=== PATIENT | male | born 1985 | race Caucasian/White ===

== ENCOUNTER 2025-04-27 07:44 | Day surgery (SDC) | payer OTHER, SELFPAY ==
[2025-04-27] VITALS (9 sets, daily range): BP systolic 94–126; BP diastolic 64–90; PULSE 98–113; RESP 12–20; TEMP 36.5–37.4; O2SAT 95–100; BMI 21.1
--- NOTE | 2025-04-27 07:58 | XR_ITS ---
Examination: CT abdomen with intravenous contrast CT pelvis with intravenous contrast 2-D coronal reconstructions 2-D sagittal reconstructions Date and time of exam:April 27, 2025 0915 hours INDICATIONS: Right lower abdominal pain with fever beginning today. CTDI: vol (mGy) 5.32 DLP: (mGycm) 304 Technique: Multiple axial sections of the abdomen and pelvis have been obtained. 64 slice high-resolution scanner used. 3 mm axial sections have been obtained, post intravenous injection 60 cc [id number] 2-D sagittal, coronal reconstructions obtained. Low dose protocols were performed. One or more of the following dose reduction techniques were used; automated exposure control, adjustment of the mA and/or KV according to patient size, use of iterative reconstruction technique. Findings: No focal liver or splenic lesions No gallstones No pancreatic or adrenal mass No renal or ureteral calculi, no hydronephrosis Aorta normal size Appendix is enlarged and fluid-filled with appendicolith, axial images 150 11/04/1969 with mild periappendiceal inflammatory change No pelvic abscess Bladder intact IMPRESSION: Findings most consistent with early acute appendicitis, clinical correlation is advised
--- NOTE | 2025-04-27 07:59 | PD.EDABDPN ---
ED Abdominal Pain RME/HPI General Chief Complaint: Abdominal Pain Stated complaint: Right lower abdominal pain, vomiting Time seen by provider: 04/27/25 07:48 Arrival date/time: 04/27/25 07:44 40-year-old male with no known medical history presents to the emergency room with a chief complaint of right lower quadrant abdominal pain, vomiting x 2 days Source: patient Mode of arrival: ambulatory Limitations: no limitations Related Data Allergies Allergy/AdvReac Type Severity Reaction Status Date / Time ampicillin Allergy Mild pt. is Verified 04/27/25 07:47 allergic. amoxicillin Allergy Unknown Verified 04/27/25 07:47 Review of Systems Review of Systems Systems Reviewed: All systems reviewed, normal except as documented Constitutional Constitutional: Reports system reviewed and no additional complaints, except as documented, Denies fatigue, Denies fever(s), Denies headache(s) and Denies weakness Eyes Eyes: Reports system reviewed and no additional complaints, except as documented, Denies blurry vision and Denies change in vision ENT Ears, Nose, Mouth, and Throat: Reports system reviewed and no additional complaints, except as documented, Denies otalgia, Denies headache(s), Denies nasal congestion, Denies throat swelling and Denies vertigo Cardiovascular Cardiovascular: Reports system reviewed and no additional complaints, except as documented, Denies chest pain, Denies dyspnea and Denies dyspnea on exertion Respiratory Respiratory: Reports system reviewed and no additional complaints, except as documented, Denies chest congestion, Denies cough, Denies dyspnea, Denies dyspnea on exertion and Denies wheezing Gastrointestinal Gastrointestinal: Reports system reviewed and no additional complaints, except as documented, Reports abdominal pain, Reports cramping, Denies nausea and Reports vomiting Genitourinary Genitourinary: Reports system reviewed and no additional complaints, except as documented, Denies dysuria and Denies hematuria Musculoskeletal Musculoskeletal: Reports system reviewed and no additional complaints, except as documented and Denies back pain Integumentary/Breasts Skin/Breast: Reports system reviewed and no additional complaints, except as documented and Denies wounds Neurologic Neurologic: Reports system reviewed and no additional complaints, except as documented, Denies confusion, Denies headache(s), Denies lack of coordination, Denies vertigo and Denies weakness Psychiatric Psychiatric: Reports system reviewed and no additional complaints, except as documented, Denies anxiety, Denies confusion, Denies depression, Denies paranoia, Denies suicidal ideation and Denies tactile hallucinations Endocrine Endocrine: Reports system reviewed and no additional complaints, except as documented and Denies fatigue Hematologic/Lymphatic Hematologic/Lymphatic: Reports system reviewed and no additional complaints, except as documented and Denies lymphadenopathy Allergic/Immunologic Allergic/Immunologic: Reports system reviewed and no additional complaints, except as documented, Denies throat swelling, Denies urticaria and Denies wheezing ED Exam General Limitations: Present no limitations General appearance: Present alert and in no apparent distress Head Head exam: Present atraumatic Eye Eye exam: Present normal appearance, PERRL and EOMI ENT ENT exam: Present normal exam, normal oropharynx and mucous membranes moist Neck Neck exam: Present normal inspection, full ROM and trachea midline Chest Chest inspection: Present normal inspection and symmetric chest wall rise Respiratory Respiratory exam: Present normal lung sounds bilaterally Cardiovascular Cardiovascular exam: Present regular rate, normal rhythm and normal heart sounds Abdominal Exam Abdominal exam: Present soft, tenderness, normal bowel sounds and tenderness at McBurney's Point; Absent distention, guarding or rebound Abdominal tenderness: Present RLQ and moderate Extremities Exam Extremities exam: Present normal inspection and full ROM Back Exam Back exam: Present normal inspection and full ROM Neurological Exam Neurological exam: Present alert, oriented X3 and CN II-XII intact Psychiatric Psychiatric exam: Present normal affect and normal mood Skin Skin exam: Present warm, dry, intact and normal color Course Quality Measures none Orders Category Date Time Status COVID-19 Screening Questionnaire NOW Care 04/27/25 10:[address] Screening NOW Care 04/27/25 07:58 Active Decision to Admit X1 Care 04/27/25 10:[address] abdomen pelvis w con Stat Exams 04/27/25 07:58 Completed CBC Stat Lab 04/27/25 08:46 Completed CMP [Comprehensive Metabolic Panel] Stat Lab 04/27/25 08:46 Completed Lipase Stat Lab 04/27/25 08:46 Completed UA [Urinalysis] Stat Lab 04/27/25 07:58 Ordered Urine Culture Stat Lab 04/27/25 07:58 Ordered HYDROcodone*/APAP 5/325 [[place] 5/325] Med 04/27/25 07:59 Discontinued 1 tab PO X1 ONE Ondansetron Odt [Zofran Odt] Med 04/27/25 07:58 Discontinued 4 mg PO X1 ONE Vital Signs Vital signs: Vital Signs Temperature 99.3 F 04/27/25 07:57 Pulse Rate 102 H 04/27/25 07:57 Respiratory Rate 16 04/27/25 07:57 Blood Pressure 102/64 04/27/25 07:57 Pulse Oximetry (%) 95 04/27/25 07:57 Oxygen Delivery Method Room Air 04/27/25 07:57 O2 saturation within normal limits Abdominal Pain MDM MDM Narrative MDM Narrative:: 40-year-old male with no known medical history presents to the emergency room with a chief complaint of right lower quadrant abdominal pain, vomiting x 2 days Patient is hemodynamically stable and in no apparent distress Physical examination shows tenderness to the right lower quadrant with palpation. The patient did not have any rebound tenderness. The patient also has vomiting and a white count of 16. Shah score shows findings are suspicious for appendicitis. A CT of the abdomen and pelvis with contrast was completed and the findings are most consistent with acute early appendicitis. Dr. Martel our general surgeon on-call was consulted and she will admit the patient Patient was discharged and educated to follow-up with primary care provider in the next 24 to 48 hours and return to the emergency room for any evidence of worsening signs or symptoms Patient data External records reviewed:: [facility] previous records Clinical information provided by:: patient Social determinants that could affect healthcare access:: none Patient has the following chronic illnesses:: No chronic illness How is presenting disease/condition affected by chronic disease/condition?: no chronic disease Evaluation data The following diagnostics were reviewed and interpreted by me:: lab results and radiology exam(s) Lab and/or radiology exams considered but not ordered:: Labs and radiology exams considered and ordered Interpretation Summary: CT abdomen and pelvis-Findings: No focal liver or splenic lesions No gallstones No pancreatic or adrenal mass No renal or ureteral calculi, no hydronephrosis Aorta normal size Appendix is enlarged and fluid-filled with appendicolith, axial images 150 11/04/1969 with mild periappendiceal inflammatory change No pelvic abscess Bladder intact IMPRESSION: Findings most consistent with early acute appendicitis, clinical correlation is advised Medications / Prescriptions Medications or Prescriptions considered but not ordered:: Medication given Medication administrations:: Medication Administration History Discontinued Medications Hydrocodone Bitart/Acetaminophen (Hydrocodone/Apap 5/325 Tablet) 1 tab PO X1 ONE Stop: 04/27/25 08:00 Last Admin: 04/27/25 08:07 Dose: 1 tab Documented By: SM Ondansetron HCl (Ondansetron Odt 4 Mg Tabrap) 4 mg PO X1 ONE; Protocol Stop: 04/27/25 07:59 Last Admin: 04/27/25 08:07 Dose: 4 mg Documented By: SOLEDAD Medication given Consultations Consultation(s) initiated? (list below): Yes Consultation #1 (Physician, Specialty, Details): Dr. Martel general surgeon on-call Time: 10:51 Diagnosis Differential diagnosis abdominal pain: abdominal pain, acute appendicitis, constipation, gastroenteritis and small bowel obstruction Most likely diagnosis given after review of the tests above:: Acute appendicitis Admission Indicated Admission indicated?: not indicated Admission Request Was there a request for admission?: Yes Admission Attestation Admission request attestation: Discussed case with [Dr. Martel] from Hospitalist service regarding admission. Discussed patients ED course, exam findings, labs, and radiology results. The Hospitalist [agrees,declines] to accept the patient for admission. Disposition Plan Disposition Plan: Admit Discharge Plan Plan Patient Disposition: HOME (Self Care) Discharge Disposition comment: Stable Prescriptions/Referrals Referrals: No Primary/Family,Physician [Primary Care Provider] - In 1 week Problem List Clinical Impression: Acute appendicitis Patient/Caregiver Discharge Instructions Print Language: Kazakh Stand Alone Forms: [employer] Award Info., Patient Portal Info Letter
[2025-04-27] MEDS: HYDROcodone/APAP 5/325 TABLET 1 TAB PO (08:07)
[2025-04-27] MEDS: ONDANSETRON ODT 4 MG TABRAP PO (08:07)
--- NOTE | 2025-04-27 08:45 | PC.NURSE ---
Patient in room with complaint of lower right quadrant pain since last night. Patient states he had n/v times one last night. Mother in room with patient. Call light within reach.
[2025-04-27 09:13] LABS: Basophils # (Auto) 0.0 Thou/mm3 (0.0-0.2); Basophils % (Auto) 0 % (0-2.5); Eosinophils # (Auto) 0.0 Thou/mm3 (0.0-0.5); Eosinophils % (Auto) 0 % (0-10); Hematocrit 46.8 % (41.0-53.0); Hemoglobin 16.0 g/dL (13.5-16.0); Immature Granulocytes Auto 0.04 Thou/mm3 (0.00-0.00); Lymphocytes # (Auto) 0.7 Thou/mm3 (1.0-4.8); Lymphocytes % (Auto) 5 % (10-50); Mean Corpuscular HGB Conc 34.2 g/dl (31.0-37.0); Mean Corpuscular Hemoglobin 30.3 pg (25.0-35.0); Mean Corpuscular Volume 89 fL (80-100); Monocytes # (Auto) 1.3 Thou/mm3 (0.0-0.8); Monocytes % (Auto) 8 % (0-12); Neutrophils # (Auto) 13.9 Thou/mm3 (1.8-7.7); Neutrophils % (Auto) 87 % (37-80); Nucleated Red Blood Cell # 0.00 Thou/mm3 (0.00-0.00); Nucleated Red Blood Cell % 0 /100 WBC (0); Platelet Count 239 Thou/mm3 (140-440); RDW Standard Deviation 39.5 fL (35.1-43.9); Red Blood Count 5.28 Miln/mm3 (4.50-5.90); White Blood Count 16.0 Thou/mm3 (3.8-10.6)
[2025-04-27 10:08] LABS: Alanine Aminotransferase 15 U/L (10-49); Albumin, Serum 4.6 gm/dL (3.5-5.0); Albumin/Globulin Ratio 1.8 (1.2-2.2); Alkaline Phosphatase 85 U/L (46-116); Anion Gap 10 (7-16); Aspartate Amino Transferase 21 U/L (0-34); BUN/Creatinine Ratio 12 Ratio (12-20); Bilirubin,Total 1.1 mg/dL (0.3-1.2); Blood Urea Nitrogen 12 mg/dL (9-23); Calcium 9.1 mg/dL (8.3-10.6); Calcium (Corrected) 9.1 mg/dL (8.5-10.1); Carbon Dioxide 25.2 mMol/L (20.0-31.0); Chloride 105 mMol/L (98-107); Creatinine (Component) 1.0 mg/dL (0.6-1.3); Estimated Creatinine Clearance 86.7 mL/min (>60); Globulin 2.6 gm/dL (2.3-3.5); Glucose 118 mg/dL (74-106); Lipase 23 U/L (12-53); Osmolality,Calculated 280 (275-295); Potassium 4.5 mMol/L (3.4-5.1); Sodium 140 mMol/L (136-145); Total Protein 7.2 gm/dL (5.7-8.2); eGFR > 60 See Note
--- NOTE | 2025-04-27 10:15 | PC.NURSE ---
Patient returned from CT, made aware urine is needed. Patient states he will try. Mother remains at bedside.
[2025-04-27 11:06] LABS: Collection Type, Urine Clean Catch; Squamous Epithelial Cell,Urine 0 /hpf (0-5)
[2025-04-27 11:13] LABS: Bilirubin,Urine Negative (Negative); Blood,Urine Negative (Negative); Clarity,Urine Clear (Clear/Hazy); Color,Urine Lt-Yellow (Lt Yel-Yel); Glucose, Urine Negative (Negative); Ketones,Urine 2+ (Negative); Leukocyte Esterase,Urine Negative (Negative); Nitrite,Urine Negative (Negative); PH,Urine 7.0 (5.0-7.0); Protein,Urine Negative (Neg - Trace); RBC,Urine 1 /hpf (0-3); Urobilinogen,Urine Negative mg/dL (0.0-1.0); WBC,Urine < 1 /hpf (0-5)
[2025-04-27] MEDS: SODIUM CHLORIDE 0.9% 1000 ML 1,000 ML 125 ML IV (11:20)
[2025-04-27] MEDS: CEFOXITIN 2 GM in SODIUM CHLORIDE 0.9% (Popper) 50 ML IV (11:22)
[2025-04-27 11:44] LABS: Specific Gravity,Urine 1.015 (1.001-1.035)
--- NOTE | 2025-04-27 13:41 | PD.SURHP ---
HPI HPI 40M presenting with abdominal pain, nausea and low grade fever. Pt reports pain began suddenly last night in the RLQ, unlike any pain he has had previously, associated with nausea and anorexia. He vomited once this morning and on presentation to ER had Tmax 99.3, WBC [address] findings of acute appendicitis with appendicolith. Pt reports pain is stable and he has no other complaints PMH: None PShx: None Meds: None Allergies: Ampicillin, amoxicillin cause rash Social hx: Nonsmoker Review of Systems Review of Systems ROS Unobtainable: All systems reviewed & no additional complaints except as documented Constitutional Constitutional: Denies headache(s) and Denies weakness ENT Ears, Nose, Mouth, and Throat: Denies headache(s) and Denies vertigo Neurologic Neurologic: Reports system reviewed and no additional complaints, except as documented, Denies confusion, Denies headache(s), Denies lack of coordination, Denies vertigo and Denies weakness Psychiatric Psychiatric: Denies confusion Meds Home Medications and Allergies Allergies Allergy/AdvReac Type Severity Reaction Status Date / Time ampicillin Allergy Mild pt. is Verified 04/27/25 07:47 allergic. amoxicillin Allergy Unknown Verified 04/27/25 07:47 Exam Vital Signs Temp Pulse Resp BP Pulse Ox O2 Del Method 98.8 F 100 16 103/65 97 Room Air 04/27/25 12:17 04/27/25 12:17 04/27/25 12:17 04/27/25 12:17 04/27/25 12:17 04/27/25 12:17 Constitutional Constitutional: no acute distress Routine Respiratory Exam Respiratory: Present no resp distress Routine Abdominal Exam Abdominal: Present soft and tenderness (mild RLQ tenderness); Absent distended, rebound or guarding Results Results: Laboratory Laboratory results: results reviewed Results: Imaging CT scan - abdomen: report reviewed and image reviewed Assessment & Plan Plan 40M presenting with signs and symptoms of acute appendicitis with an appendicolith. I explained alternative/benefits/risks of surgery including risks of bleeding, infection, injury to nearby structures, need for conversion to open and postoperative hernia. All questions were answered and pt is agreeable to proceeding Quality Measures Quality Measures none
--- NOTE | 2025-04-27 14:36 | PD.SUROPNT ---
Date of Procedure 04/27/25 Pre Op Diagnosis Acute appendicitis Post Op Diagnosis Same Procedure Laparoscopic appendectomy Findings Acutely inflamed appendix Procedure Description After discussion of risks and benefits, patient was brought to the operating room, SCDs were placed and general anesthesia was induced. He had already received preoperative antibiotics and had urinated immediately prior to entering the operating room. He was prepped and draped in usual sterile fashion. After timeout an infraumbilical incision was made with a #11 blade and the skin was elevated with towel clamps. A Veress needle was placed through the incision and proper positioning was confirmed with a drop test. The abdomen was then insufflated to 15 mmHg at which point the Veress needle was exchanged for a 5 mm camera using a Visiport technique. There were no signs of injury from the point of entry. 2 additional ports were placed under direct vision, 1 to 5 mm in the left lower quadrant and one 5 mm in the suprapubic region. The infraumbilical port was upsized to a 12 mm also under direct vision. Patient was placed in Trendelenburg with left side down. The appendix was easily found by tracing the tinea of the colon and a window was made between the base of the appendix and the mesoappendix using blunt dissection. The base of the appendix was stapled with a 45 mm blue load stapler and the mesoappendix was transected with the harmonic scalpel. The staple line was gently irrigated and there were no signs of bleeding. The specimen was removed in an Endo Catch bag via the infraumbilical port, the infraumbilical fascia was closed with a 0 Vicryl suture using a Rubens-Mary. Pneumoperitoneum was released and ports were removed under direct vision. Incisions were irrigated and infiltrated with half percent Marcaine for total of 30 cc. Incisions were closed with 4-0 Monocryl and reinforced with Dermabond. Patient was extubated and brought to PACU in stable condition Pathology / specimen Other (Appendix) Estimated Blood Loss 10 Surgeon Savita Campa MD Surgical Staff Operation Date: 04/27/25 14:15 Case Staff Anesthesiologist: Ronen Maciel RN First Assistant: Ana Zafar
--- NOTE | 2025-04-27 14:39 | PD.SURDS ---
Planned Discharge Date 04/27/25 DS: Providers Provider Primary care physician: Physician No Primary/Family Attending Provider on Admission: Savita Campa MD Attending Provider on DC: Savita Campa MD Discharging Provider: Savita Campa MD Diagnosis Discharge Diagnosis (1) Acute appendicitis: Status: Acute Problem List Completed Was Problem List Reviewed/Reconciled?: Yes Hospital Course Brief History: 40M presenting with abdominal pain, nausea and low grade fever. Pt reports pain began suddenly last night in the RLQ, unlike any pain he has had previously, associated with nausea and anorexia. He vomited once this morning and on presentation to ER had Tmax 99.3, WBC [address] findings of acute appendicitis with appendicolith. Pt reports pain is stable and he has no other complaints PMH: None PShx: None Meds: None Allergies: Ampicillin, amoxicillin cause rash Social hx: Nonsmoker Exam Vital Signs Temp Pulse Resp BP Pulse Ox O2 Del Method 98.8 F 100 16 103/65 97 Room Air 04/27/25 12:17 04/27/25 12:17 04/27/25 12:17 04/27/25 12:17 04/27/25 12:17 04/27/25 12:17 Discharge Plan Plan Patient Disposition: HOME (Self Care) Prescriptions/Referrals Prescriptions/Med Rec: New oxycodone-acetaminophen [Endocet] 5-325 mg tablet 1 tab PO Q4H MDD 6 tabs PRN (Reason: pain) Qty: 10 0RF Rx Instructions: Take 1 tablet every 4-6 hours as needed for moderate to severe pain Referrals: Savita Campa MD [Physician] - (You will receive a phone call to confirm a follow-up appointment with me in 2 weeks) No Primary/Family,Physician [Primary Care Provider] - In 1 week Patient/Caregiver Discharge Instructions Other Discharge Activity Instructions:: You may resume showering in 2 days, on 04/29 It is okay to get incisions wet, pat them dry after Avoid bathing or swimming for 2 weeks Avoid lifting objects greater than 10 pounds for 6 weeks You may take ibuprofen as needed between doses of Percocet or instead of Percocet for mild to moderate pain Your incisions have skin glue on them which will fall off on its own and does not need to be replaced Your stitches will not need to be removed During the surgery we fill your abdomen with air in order to see the structures. Some of this air tends to linger and cause pain that is referred to the shoulder as well as pain with deep breaths. This will get better with time. Being out of bed and walking helps the air to absorb faster If you develop worsening pain, nausea/vomiting, fever, redness or drainage at the incision sites please seek care in ER Education Materials: Appendectomy Laparoscopic Dc Print Language: Tunisian Stand Alone Forms: [employer] Award Info., Patient Portal Info Letter Discharge Order Discharge Orders: Discharge (Routine); Ordered 04/27/25 Ordered By: Savita Campa Results Results: Laboratory Laboratory results: results reviewed Results: Imaging CT scan - abdomen: report reviewed and image reviewed PROCEDURES: Procedures Laparoscopic appendectomy
--- NOTE | 2025-04-27 14:40 | SUR.PHASEI ---
1440: Pt. AAOx4, vitals stable, breathing unlabored, no complaint of pain or nausea, x3 dermabond sites to ABD CDI, no active bleed noted, report received from MD Maciel and Talisha DICKENS.
--- NOTE | 2025-04-27 15:30 | SUR.PHASEII ---
1530: Pt. AAOx4, vital sstable, breathing unlabored, no complaint of pain or nausea, x3 dermabond sites to ABD CDI, no active bleed noted, pt. tolerated sips of water well, pt. ambulated to wheelchair with steady gait and no assist, no complications. Gave discharge instructions to the pt. and his ride, both verbalized understanding and had no further questions. Pt. left with all personal belongings. ER did not fill out personal belongings paper, family stated they held onto belongings for pt. and claimed that he left with everything.
== END 2025-04-27 15:30 | disposition home or self-care (01) ==
LOC: SERX 11:19 → S2EX 11:32
PROVIDERS: Emergency Provider Nurse Practitioner Family; Referring Provider Surgery; Visit Provider Surgery
PROC: 0DTJ4ZZ Resection of Appendix, Percutaneous Endoscopic Approach (ICD-10-PCS; CPT 44970; principal; 2025-04-27 14:00)
DX: K35.30 Acute appendicitis with localized peritonitis, without perforation or gangrene (principal)
CPT/HCPCS: 44970; 36415; 74177; 80053; 81001; 83690; 85025; 87086; 96365; A4217; A4649; J0131; J0694; J1100; J1885; J2250; J2405; J2704; J3010; J3490; J7030; J7050; Q0162; Q9967; A9270

== ENCOUNTER 2025-05-14 10:44 | Outpatient (AMB) | payer OTHER, SELFPAY ==
--- NOTE | 2025-05-14 11:09 | PD.GSCLVISIT ---
Vital Signs - [facility] 05/14/25 11:12 Height 1.7 m Height Method Stated Weight 59.591 kg Weight Measurement Method Standing Scale BMI 20.5 BP 101/69 Blood Pressure Source Automatic Cuff Blood Pressure Location Left Upper Arm Position Sitting Respiration 18 Pulse 99 Pulse Source Monitor Temp 98.4 F Temp Source Temporal Artery Scan Pulse Oximetry (%) 96 Oxygen Delivery Method Room Air Med/Allergies Allergies & Medications Allergies ampicillin Allergy (Mild, Verified 05/14/25 11:13) pt. is allergic. amoxicillin Allergy (Unknown, Verified 05/14/25 11:13) Medication Reconciliation oxycodone-acetaminophen 5 mg-325 mg tablet (Endocet) 1 tab PO Q4H PRN pain #10 tabs 04/27/25 [Rx Confirmed 05/14/25] MA Intake Visit Data Collection New Patient or Established: Established Patient (seen at [facility] within 3 years) Seen by Clinical Staff ONLY (RN/MA): No Pain Present Currently: No Environmental Restoration Planner Required: No PCP or OBGYN visit in last 3 months: Yes Hx Now: No Do You Feel Safe at Home: Yes Authorities Contacted: N/A Smoking Status Smoking Status: Never smoker Immunization / Flu Flu Vaccine in the Last 12 Months: No Flu Vaccine Exclusion Criteria: Refused by Patient Past Medical History Past Medical History NEUROLOGIC: Negative Seizures CARDIAC: Positive Congestive Heart Failure; Negative Cardiac Disorders RESPIRATORY: Positive Chronic Obstructive Pulmonary Disease (COPD); Negative Asthma GENITOURINARY: Negative Renal Disease ENDOCRINE: Positive Diabetes Mellitus Type 1; Negative Diabetes Mellitus Type 2 HEMATOLOGIC: Negative Sickle Cell Disease OTHER HISTORY: Negative Blood Transfusions or Anesthesia Reactions Social History SMOKING STATUS: Smoking status: Never smoker HPI HPI Narrative 40M s/p lap appendectomy 04/27/25 here for planned follow up. Pt reports feeling very well, he has no pain, no nausea or fever, is eating well and having regular bladder and bowel function ROS Review of Systems Systems Reviewed: All systems reviewed, normal except as documented Objective/Exam General General Appearance: alert, cooperative and well groomed Resp Respiratory exam: Absent respiratory distress Abdominal Abdominal exam: Present soft and incision (c/d/i, no erythema, no fluctuance or tenderness); Absent distention or tenderness Results Pathology of appendix removed Assessment & Plan Diagnosis / Problem List (1) Acute appendicitis: Status: Acute Assessment & Plan: 40M s/p lap appendectomy 04/27/25, recovering well Plan: Avoid strenuous activity including lifting objects >10lbs for 6 weeks F/u as needed Office Procedures GNS Level of Care Nursing/Assessment Patient Status: Established Patient Nursing Assessment/Reassesment: Medication Reconciliation, Update PMH in EMR and Vital Signs Coordination of Care: Complex Care and Chronic Disease 1-5, Consent,records obtained, informed consent, Education Simp Pt/Fam, Results/Orders obtained and Staff clarify orders Established Patient Charge Established Patient Point Assignment: 90 Established Patient Point Charge: EP Level 3 (80-115) Patient Portal Questionaires Social History Tobacco History Smoking Status: Never smoker Domestic Abuse History Do You Feel Safe at Home: Yes Review of Systems Report any current symptoms Only answer those that you have currently: Past Medical History Past Medical History Have you ever been diagnosed with any of the following: Neurological Problems Seizures: No Cardiology Problems Congestive Heart Failure: Yes Respiratory Problems Chronic Obstructive Pulmonary Disease (COPD): Yes Asthma: No Genital/Urinary Problems Renal Disease: No Endocrine Problems Diabetes Mellitus Type 1: Yes Diabetes Mellitus Type 2: No Blood Problems Sickle Cell Disease: No Other Problems Blood Transfusions: No Anesthesia Reactions: No
[2025-05-14 11:12] VITALS: BP 101/69; PULSE 99; RESP 18; TEMP 36.9; O2SAT 96; BMI 20.5
== END 2025-05-14 11:32 | disposition home or self-care (01) ==
LOC: HODSRG 10:44
PROVIDERS: Supervising Provider Surgery; Visit Provider Surgery
DX: Z48.815 Encounter for surgical aftercare following surgery on the digestive system (principal); E10.9 Type 1 diabetes mellitus without complications; I50.9 Heart failure, unspecified; J44.9 Chronic obstructive pulmonary disease, unspecified
CPT/HCPCS: 99213; G0463